=== PATIENT | female | born 1950 | race Caucasian/White ===

== ENCOUNTER 2019-03-02 09:17 | Day surgery (SDC) | payer MEDICARE, OTHER ==
[2019-03-02] MEDS ORDERED: ACETAZOLAMIDE 250 MG PO ONE (09:43)
[2019-03-02] MEDS: TETRACAINE HCL 0.5 % 1 DROP SOL ONE ×3 (10:01→11:16)
[2019-03-02] MEDS: PHENYLEPHRINE HCL 10% OPHTHAL SOL ONE ×2 (10:02→10:13)
[2019-03-02] MEDS ORDERED: FENTANYL 100MCG/2ML SOL ONE (10:02)
[2019-03-02] MEDS ORDERED: MIDAZOLAM 2 MG/2 ML SOL ONE (10:02)
[2019-03-02] MEDS: KETOROLAC 0.5% OPTH 60 DROP SOL ONE ×2 (10:02→10:14)
[2019-03-02] MEDS: CYCLOPENTOLATE 1% SOL ONE ×2 (10:02→10:14)
[2019-03-02 10:06] VITALS: O2SAT 96
[2019-03-02] MEDS ORDERED: LIDOCAINE HCL 1% MPF 30 SOL ONE (10:57)
[2019-03-02] MEDS ORDERED: POVIDONE IODINE 5% SOL ONE (10:57)
[2019-03-02] MEDS ORDERED: IMPRIMIS ONE (10:57)
[2019-03-02] MEDS ORDERED: BSS 500 ML 500 ML IR ONE (10:58)
[2019-03-02 11:42] VITALS: BP 125/77; PULSE 59; RESP 20; TEMP 97.6
== END 2019-03-02 12:13 | disposition home or self-care (01) | DRG 125 ==
LOC: SURG 09:17
PROVIDERS: ATTEND Ophthalmology
DX: H25.89 Other age-related cataract (principal)
CPT/HCPCS: J2250; J3010; A9270-GY; J2001

== ENCOUNTER 2019-03-30 08:44 | Day surgery (SDC) | payer OTHER ==
[2019-03-30] MEDS ORDERED: ACETAZOLAMIDE 250 MG PO ONE (08:49)
[2019-03-30] MEDS: KETOROLAC 0.5% OPTH 60 DROP SOL ONE ×2 (09:18→09:30)
[2019-03-30] MEDS: TETRACAINE HCL 0.5 % OPHTH 1 DROP SOL ONE ×3 (09:18→10:37)
[2019-03-30] MEDS: CYCLOPENTOLATE 1% SOL ONE ×2 (09:18→09:30)
[2019-03-30] MEDS: PHENYLEPHRINE HCL 10% OPHTHAL SOL ONE ×2 (09:18→09:30)
[2019-03-30 09:19] VITALS: RESP 18
[2019-03-30] MEDS ORDERED: FENTANYL 100MCG/2ML SOL ONE (10:09)
[2019-03-30] MEDS ORDERED: MIDAZOLAM 2 MG/2 ML SOL ONE (10:09)
[2019-03-30] MEDS ORDERED: TRIMOXI ONE (10:29)
[2019-03-30] MEDS ORDERED: LIDOCAINE HCL 1% MPF 30 SOL ONE (10:30)
[2019-03-30] MEDS ORDERED: BSS 500 ML 500 ML IR ONE (10:30)
[2019-03-30] MEDS: POVIDONE IODINE 5% SOL ONE ×2 (10:38→10:40)
[2019-03-30 11:10] VITALS: BP 128/68; PULSE 59; TEMP 97.4; O2SAT 95
== END 2019-03-30 11:23 | disposition home or self-care (01) | DRG 125 ==
LOC: SURG 08:44
PROVIDERS: ATTEND Ophthalmology
DX: H25.89 Other age-related cataract (principal)
CPT/HCPCS: J2250; J3010; A9270-GY; J2001